=== PATIENT | male | born 1950 | race Caucasian/White ===

== ENCOUNTER 2019-09-30 08:51 | Day surgery (SDC) | payer MEDICARE, MEDICAID ==
[2019-09-30] VITALS (9 sets, daily range): BP systolic 110–165; BP diastolic 58–107
[~2019-09-30] VITALS: Ht 170.2 cm; Wt 105.1 kg
[~2019-09-30 08:51] MED LIST: ALBU18HF2 INH; ASPI-1265 PO; BECL7.3A INH; BUPR-344; CANA300T PO; CHOL50004 PO; CLON-371 PO; GLIM4TAB7 PO; HYDR-4353 PO; HYDR12.55 PO; LANTUS SUBCUT; LINA5TAB4 PO; LISI-600 PO; MAGN400C PO; MEMA28CA PO; METF-436 PO; PANT-47 PO; RIVA1PAT9 TOP; ROSU40TA PO; VENL150T3 PO
[2019-09-30] MEDS ORDERED: diphenhydrAMINE 25mg capsule PO PRN (09:20)
[2019-09-30] MEDS ORDERED: normal saline 1,000 ML IV SCH (09:20)
[2019-09-30 09:48] LABS: BASOPHILS % (AUTO) 0.3 % (0-1); EOSINOPHILS # (AUTO) 0.1 X10'3 (0-0.9); EOSINOPHILS % (AUTO) 1.3 % (0-6); HEMATOCRIT 40.5 % (42.0-52.0); HEMOGLOBIN 13.6 g/dl (14.0-17.9); LYMPHOCYTES # (AUTO) 1.4 X10'3 (1.1-4.8); LYMPHOCYTES % (AUTO) 18.5 % (21-51); MEAN CORPUSCULAR HEMOGLOBIN 29.2 PG (27.0-31.0); MEAN CORPUSCULAR HGB CONC 33.5 g/dL (33.0-36.5); MEAN CORPUSCULAR VOLUME 87.2 FL (78-98); MEAN PLATELET VOLUME 8.3 FL (7.4-10.4); MONOCYTES # (AUTO) 0.6 X10'3 (0-0.9); MONOCYTES % (AUTO) 8.5 % (2-12); NEUTROPHILS # (AUTO) 5.3 X10'3 (1.8-7.7); NEUTROPHILS % (AUTO) 71.4 % (42-75); PLATELET COUNT 194 X10'3 (140-440); RED BLOOD COUNT 4.65 X10'6 (4.70-6.10); RED CELL DISTRIBUTION WIDTH 14.6 % (11.5-14.5); WHITE BLOOD COUNT 7.5 X10'3 (4.5-11.0)
[2019-09-30 09:56] LABS: ALBUMIN 3.9 G/DL (3.4-5.0); ANION GAP 10 (8-16); BLOOD UREA NITROGEN 23 MG/DL (7-18); BUN/CREATININE RATIO 16.9 (5.4-32.0); CALCIUM 9.1 MG/DL (8.5-10.1); CHLORIDE 105 MMOL/L (99-107); CREATININE 1.36 MG/DL (0.60-1.10); GLUCOSE 167 MG/DL (70-104); MAGNESIUM 1.7 MG/DL (1.5-2.4); SODIUM 142 MMOL/L (135-145); TOTAL CARBON DIOXIDE 26.8 MMOL/L (24-32); eGFR 52 ML/MIN
[2019-09-30] MEDS ORDERED: iohexol 350 MG/ML 50ML vial IV ONE (10:33)
[2019-09-30] MEDS ORDERED: heparin 1,000unit/ml 10ml vial 10 ML ONE (10:33)
[2019-09-30] MEDS ORDERED: iohexol 350 MG/1 ML 200ml bottle ONE (10:33)
[2019-09-30] MEDS ORDERED: LIDOcaine 1% (10mg/ml)w/preservative injection 20ml MDV ONE (10:33)
[2019-09-30] MEDS ORDERED: midazolam 2 mg/2 ml injection ONE ×2 (10:34→11:28)
[2019-09-30] MEDS ORDERED: fentaNYL/PF 50MCG/1 ML 2ML syringe ONE ×2 (10:35→11:28)
--- NOTE | 2019-09-30 11:00 | NUR ---
Patient to OR via [facility]
[2019-09-30] MEDS ORDERED: proCHLORperazine 10 MG/2 ml inj ONE (11:14)
[2019-09-30] MEDS ORDERED: diphenhydrAMINE 50 mg/ml inj ONE (11:28)
[2019-09-30] MEDS ORDERED: nitroGLYCERIN-Tridil 50MG/D5W 250 ML IV ONE (11:53)
[2019-09-30] MEDS ORDERED: verapamil 2.5 mg/ml inj IV ONE (11:54)
[2019-09-30] MEDS ORDERED: clopidogrel 300mg tablet ONE (13:05)
[2019-09-30] MEDS ORDERED: HYDROcodone/acetaminophen 5mg/325mg tablet PO PRN (13:55)
[2019-09-30] MEDS ORDERED: ondansetron/PF 4mg/2ml inj IV PRN (13:55)
[2019-09-30] MEDS ORDERED: normal saline 1000ml 1,000 ML IV SCH (13:55)
[2019-09-30] MEDS ORDERED: proCHLORperazine 10 MG/2 ml inj IV PRN (13:55)
[2019-09-30] MEDS ORDERED: OXAZEpam 15mg capsule PO PRN (13:55)
[2019-09-30] MEDS ORDERED: HYDROcodone/acetaminophen 10/325mg tab PO PRN (13:55)
== END 2019-09-30 18:38 | disposition home or self-care (01) ==
LOC: SSTAY O 08:51
PROVIDERS: ATTEND Internal Medicine Cardiovascular Disease
DX: I70.211 Atherosclerosis of native arteries of extremities with intermittent claudication, right leg (principal); I10 Essential (primary) hypertension; E78.5 Hyperlipidemia, unspecified; E11.9 Type 2 diabetes mellitus without complications; J44.9 Chronic obstructive pulmonary disease, unspecified; I25.10 Atherosclerotic heart disease of native coronary artery without angina pectoris; F17.210 Nicotine dependence, cigarettes, uncomplicated; Z95.5 Presence of coronary angioplasty implant and graft; Z98.890 Other specified postprocedural states; Z79.4 Long term (current) use of insulin; Z79.899 Other long term (current) drug therapy; Z88.5 Allergy status to narcotic agent; M79.662 Pain in left lower leg
CPT/HCPCS: 36415; 37225; 75710; 80048; 83735; 85025; 85610; 93005; 99152; 99153; C1725; C1760; C1769; C1885; C1894; J0780; J1200; J1644; J2001; J2250; J3010; J7030; Q0163; Q9967; 36247; 37224; A4620; A6258; C2623; J3490

== ENCOUNTER 2020-04-01 06:59 | Inpatient (IN) | payer MEDICARE, MEDICAID ==
[2020-03-26 16:34] LABS: COLOR,URINE YELLOW (Yellow); GLUCOSE, URINE >=1000 mg/dl (Neg); KETONES,URINE NEGATIVE (Neg); LEUKOCYTE ESTERASE ,URINE NEGATIVE (Neg); NITRITES, URINE NEGATIVE (Neg); OCCULT BLOOD,URINE NEGATIVE (Neg); PH,URINE 5.5 (4.8-8.0); PROTEIN,URINE NEGATIVE (Neg); UROBILINOGEN,URINE 0.2 E.U/dL (0.2-1.0)
[2020-03-26 16:41] LABS: HEMOGLOBIN A1C 9.3 % (4.5-6.2)
[2020-03-26 16:43] LABS: UA COLLECTION TYPE CLN CATCH MIDSTREAM
[2020-03-26 16:44] LABS: CLARITY,URINE SLIGHTLY CLOUDY (Clear)
[2020-03-26 16:45] LABS: BACTERIA,URINE FEW /HPF (Neg); RBC,URINE NONE SEEN /HPF (0-2); SQUAMOUS EPITHELIAL CELL,UR MANY /LPF (FEW); WBC,URINE 0-4 /HPF (0-4)
[2020-03-26 16:46] LABS: PRE OP PROTIME 10.3 SECONDS (9.0-12.0)
[2020-03-26 16:48] LABS: ALBUMIN 3.7 G/DL (3.4-5.0); ALBUMIN/GLOBULIN RATIO 0.9 (1.1-1.5); ALKALINE PHOSPHATASE 76 IU/L (46-116); BLOOD UREA NITROGEN 16 MG/DL (7-18); BUN/CREATININE RATIO 10.8 (5.4-32.0); CALCIUM 9.1 MG/DL (8.5-10.1); CHLORIDE 105 MMOL/L (99-107); CREATININE 1.48 MG/DL (0.60-1.10); PRE OP ALT 58 U/L (30-65); PRE OP ANION GAP 11 (8-16); PRE OP AST 37 U/L (10-37); PRE OP BILIRUB, TOTAL 0.3 MG/DL (0.0-1.0); PRE OP GLUCOSE 171 MG/DL (70-104); PRE OP POTASSIUM 3.9 MMOL/L (3.4-5.1); PRE OP SODIUM 142 MMOL/L (135-145); TOTAL CARBON DIOXIDE 26.1 MMOL/L (24-32); TOTAL PROTEIN 7.6 G/DL (6.4-8.2); eGFR 47 ML/MIN
[2020-03-26 17:01] LABS: BASOPHILS % (AUTO) 0.4 % (0-1); EOSINOPHILS # (AUTO) 0.1 X10'3 (0-0.9); EOSINOPHILS % (AUTO) 1.4 % (0-6); LYMPHOCYTES # (AUTO) 1.6 X10'3 (1.1-4.8); LYMPHOCYTES % (AUTO) 21.9 % (21-51); MEAN CORPUSCULAR HEMOGLOBIN 28.9 PG (27.0-31.0); MEAN CORPUSCULAR HGB CONC 32.8 g/dL (33.0-36.5); MEAN CORPUSCULAR VOLUME 88.2 FL (78-98); MEAN PLATELET VOLUME 8.2 FL (7.4-10.4); MONOCYTES # (AUTO) 0.6 X10'3 (0-0.9); NEUTROPHILS # (AUTO) 4.8 X10'3 (1.8-7.7); NEUTROPHILS % (AUTO) 68.3 % (42-75); PRE OP HEMOGLOBIN 12.8 g/dL (14.0-17.9); PRE OP PLATELET COUNT 209 X10'3 (140-440); RED BLOOD COUNT 4.42 X10'6 (4.70-6.10); RED CELL DISTRIBUTION WIDTH 14.5 % (11.5-14.5)
[2020-04-01] VITALS (19 sets, daily range): BP systolic 103–166; BP diastolic 62–79
[~2020-04-01] VITALS: Ht 175.3 cm; Wt 106.6 kg
[~2020-04-01 06:59] MED LIST changes: -ASPI-1265 PO; -BECL7.3A INH; +BISO5TAB29 PO; -BUPR-344; -CANA300T PO; -CHOL50004 PO; -CLON-371 PO; +CLOP75TA33 PO; +DOCUMENT DATE & TIME OF BETA-BLOCKER PO ONE; +DONE10TA44 PO; +DULA1.5P INJ; +EMPA25TA PO; +INSU100I31 SQ; +ISOS30TA6 PO; -LANTUS SUBCUT; -LINA5TAB4 PO; +MESSAGE TO NURSING IV ONE; +QUET25TA PO; -RIVA1PAT9 TOP; -ROSU40TA PO; +ROSU40TA22 PO; +TRAZ-251 PO; +albuterol 2.5 MG/3 ML nebule NEB ONE; +famotidine 20mg tablet PO ONE; +ringers solution, lacted 1,000 ML IV SCH
[2020-04-01] MEDS ORDERED: LIDOcaine 1% (10mg/ml) 2ml vial ONE ×2 (08:11→13:21)
[2020-04-01] MEDS ORDERED: cefazolin/dext.iso 2gm/50ml 50 ML IV ONE (08:25)
[2020-04-01] MEDS ORDERED: ringers solution, lacted 1,000 ML IV SCH (11:13)
[2020-04-01] MEDS ORDERED: ondansetron/PF 4mg/2ml inj IV PRN ×2 (11:15→16:35)
[2020-04-01] MEDS ORDERED: proCHLORperazine 10 MG/2 ml inj IV PRN (11:15)
[2020-04-01] MEDS ORDERED: morphine 2 MG/ML inj. syringe IV PRN (11:15)
[2020-04-01] MEDS ORDERED: meperidine/PF 25mg/ml syringe IV PRN ×3 (11:15)
[2020-04-01] MEDS ORDERED: morphine 4 MG/ML inj SYRINge IV PRN (11:15)
[2020-04-01] MEDS ORDERED: ceFAZolin 1000mg inj ONE (13:21)
[2020-04-01] MEDS ORDERED: MIDAZolam 5mg/5ml vial ONE (13:35)
[2020-04-01] MEDS ORDERED: fentaNYL/PF 50MCG/1 ML 2ML syringe ONE (13:35)
[2020-04-01] MEDS ORDERED: NORepinephrine 8 MG in NS 250 ML BAG (32 mcg/ml) IV ONE (13:37)
[2020-04-01] MEDS ORDERED: albumin (Human) 5% 250ml 250 ML IV ONE (14:08)
[2020-04-01] MEDS ORDERED: heparin 10,000 units/1 ML INJ ONE (14:13)
[2020-04-01] MEDS ORDERED: heparin 1,000unit/ml 10ml vial 10 ML ONE (15:35)
--- NOTE | 2020-04-01 15:47 | NUR ---
Received from OR via ICU BED , accompanied by Anesthesiologist RACHEL and report given by Anesthesiolgist. PATIENT WITH 20G PIV IN RIGHT UE WELL ART LINE. RIGHT INGUINAL WOUND VAC SITE PRESENT. DENIES PAIN 2' SPINAL ANESTHESIA. PATIENT SENSATION LEVEL AT L1 CURRENTLY. + DP AND PT TO RIGHT FOOT WITH DOPPLER. STRONG PULSES. SITES MARKED. VSS Addendum: 04/01/20 at 1603 by Paul Irvin RN, RN Amended: Links added.
--- NOTE | 2020-04-01 16:33 | NUR ---
Patient in room PAS IN 900. I have received report from Paul LYONS and had the opportunity to ask questions and awaiting patients arrival.
--- NOTE | 2020-04-01 16:57 | NUR ---
Report called to receiving nurse. Transferred via ICU BED WITH 2 BAGS OF Belongings . Special Issues communicated to receiving nurse BLAYNE LYONS. PASSIVE TRANSFERED TO PCU BED WITH 3 PERSON ASSIST ( PASSIVE TRANSFER ). VAC INTACT, SUCTION AT 75 MM HG MAINTAINING SUCTION WITH NO AUDIBLE LEAKS. PAIN AT 3-10 PAIN. + DP AND PT. RN'S PRESENT TO ASSIST AT BEDSIDE. VSS. Addendum: 04/01/20 at 1720 by Paul Irvin RN, RN Amended: Links added.
--- NOTE | 2020-04-01 17:00 | NUR ---
Pt arrived from PACU, 3 person assist from ICU bed to PCU bed. Pt alert and oriented x4. Fall risks in place: BLL, SRx2, CL within reach, non skid socks on. SCD's placed, Wound VAC set at 75 low continuous suction. Forrest Cath in place, below pt to gravity. Post op vitals started. 2 RN skin check complete. MRSA collected, sent to lab.
[2020-04-01] MEDS ORDERED: albuterol 2.5 MG/3 ML nebule NEB PRN ×2 (17:20→17:27)
[2020-04-01] MEDS: normal saline 1000ml 1,000 ML IV SCH (17:40)
[2020-04-01] MEDS: EMPAGLIFLOZIN PO SCH (18:10)
[2020-04-01] MEDS ORDERED: DULAGLUTIDE SQ SCH (18:15)
--- NOTE | 2020-04-01 18:30 | NUR ---
Problems reprioritized. Patient report given, questions answered & plan of care reviewed with ELOY Gutierrez. Informed nurse post op vitals need finished, and pt needs a late dinner tray.
--- NOTE | 2020-04-01 18:35 | NUR ---
Patient in room PCU 3028. I have received report from Majo and had the opportunity to ask questions and assume patient care.
[2020-04-01] MEDS: HYDROcodone/acetaminophen 10/325mg tab PO PRN (18:58)
[2020-04-01] MEDS: traZODone 50mg tablet PO SCH (20:56)
[2020-04-01] MEDS: metFORMIN 500mg tablet PO SCH (20:57)
[2020-04-01] MEDS: magnesium oxide 400mg tablet PO SCH (20:57)
[2020-04-01] MEDS: donepezil 5mg tablet PO SCH (20:58)
[2020-04-01] MEDS: lisinopril 20mg tablet PO SCH (20:58)
[2020-04-01] MEDS: QUEtiapine 25mg tablet PO SCH (20:58)
[2020-04-02] MEDS ORDERED: ziprasidone IM 20mg inj **IM only IM ONE (00:55)
[2020-04-02 02:00] VITALS: BP 158/87
[2020-04-02] MEDS: normal saline 1000ml 1,000 ML IV SCH ×3 (03:43→22:55)
--- NOTE | 2020-04-02 04:16 | NUR ---
Patient has been confused, AOx1 to name. He stated that he has dementia and needed repeated reorientation during the night. At 0100 the patient awoke confused and aggressive. He threatened staff and attempted to pull catheter, iv's and drainage tubing from his wound vac placed at the femoral site. After attempting to reorientate the patient without success I called Dr. Alvarado for further orders. The patient was placed in restraints and 10 mg geodon was administered.
--- NOTE | 2020-04-02 06:20 | NUR ---
Patient in room PCU 3028. I have received report from Jewell LYONS and had the opportunity to ask questions and assume patient care.
--- NOTE | 2020-04-02 06:30 | NUR ---
Problems reprioritized. Patient report given, questions answered & plan of care reviewed with Carolina LYONS.
[2020-04-02 07:00] VITALS: BP 143/61
[2020-04-02] MEDS ORDERED: insulin glargine (Lantus) pen - multi-dose SQ SCH (08:00)
[2020-04-02] MEDS: EMPAGLIFLOZIN PO SCH (08:00)
[2020-04-02] MEDS: venlafaxine XR 75mg capsule (Q24H) PO SCH (09:01)
[2020-04-02] MEDS: clopidogrel 75mg tablet PO SCH (09:02)
[2020-04-02] MEDS: isosorbide mononitrate 30mg tab.SR.24H PO SCH (09:02)
[2020-04-02] MEDS: pantoprazole 40mg Tablet.DR PO SCH (09:02)
[2020-04-02] MEDS: lisinopril 20mg tablet PO SCH ×2 (09:02→20:18)
[2020-04-02] MEDS: QUEtiapine 25mg tablet PO SCH ×2 (09:02→20:17)
[2020-04-02] MEDS: atenolol 25mg tablet PO SCH (09:03)
[2020-04-02] MEDS: HYDROchlorothiazide 25mg tablet PO SCH (09:03)
[2020-04-02] MEDS: atorvastatin 20mg tablet PO SCH (09:04)
--- NOTE | 2020-04-02 09:13 | NUR ---
Patient's was notified about patient's on wrist restraints, the reason for restraints, and the criteria for removing the restraints. She verbalized understanding of why we needed to put patient on restraints
[2020-04-02 11:00] VITALS: BP 95/44
[2020-04-02] MEDS ORDERED: LORazepam 1 MG tablet PO PRN (12:50)
[2020-04-02] MEDS: HYDROcodone/acetaminophen 10/325mg tab PO PRN ×2 (12:51→20:24)
--- NOTE | 2020-04-02 12:57 | NUR ---
Dr. Alvarado seen the patient. Received order to transfer this patient to Surgical flr and Ativan PO PRN for agitation/anxiety
--- NOTE | 2020-04-02 13:19 | NUR ---
Received order from Dr. Alvarado to start patient on hyperglycemia/hypoglycemia protocol. Pharmacist Jordana notified about this
[2020-04-02] MEDS ORDERED: dextrose 50%-water 50ml dispensing syringe IV PRN ×2 (13:20)
[2020-04-02] MEDS ORDERED: MESSAGE TO PHARMACY PO ONE (13:20)
[2020-04-02] MEDS ORDERED: glucagon, human recombinant 1mg kit SUBCUT PRN (13:20)
[2020-04-02] MEDS ORDERED: dextrose ORAL solution 15 GM/59 ML bottle PO PRN ×2 (13:20)
[2020-04-02] MEDS: insulin Lispro (HumaLOG) vial - multi-dose SQ SCH (13:49)
--- NOTE | 2020-04-02 14:54 | NUR ---
Patient has been off restraints for 2 hours without any problem. Patient is confused but able to follow commands, cooperative, not attempting to pull out IV, bonds catheter or wound vac. Patient need reorientation and redirection as necessary.
--- NOTE | 2020-04-02 15:01 | NUR ---
Deanne notified that this patient will be transferring to Surgical Unit today
--- NOTE | 2020-04-02 15:34 | NUR ---
DM consult, A1c is 9.3; needs written DM education handout with verbal review. Per teaching records patient is currently confused. Will monitor appropriateness for education. Addendum: 04/02/20 at [address] Amended: Links added.
--- NOTE | 2020-04-02 15:36 | NUR ---
brought patient's home medications - Namenda and Jardiance today. Medications stored in the pharmacy
[2020-04-02] MEDS: memantine hcl 7mg SR capsule (24-hr) PO SCH (15:40)
[2020-04-02 15:49] VITALS: BP 100/55
--- NOTE | 2020-04-02 16:50 | NUR ---
Report given to Naomie LYONS in Surgical Unit
--- NOTE | 2020-04-02 17:30 | NUR ---
RECD PT FROM U. PT CONFUSED, BASELINE, VSS Addendum: 04/02/20 at 1832 by Taisha Tillman RN Amended: Links added.
--- NOTE | 2020-04-02 17:31 | NUR ---
Patient transported to Surgical Unit Room 358A with his belongings
[2020-04-02 17:44] VITALS: BP 125/67
[2020-04-02 18:00] VITALS: BP 110/60
--- NOTE | 2020-04-02 18:17 | NUR ---
Problems reprioritized. Patient report given, questions answered & plan of care reviewed with HECTOR LYONS.
[2020-04-02] MEDS: donepezil 5mg tablet PO SCH (20:17)
[2020-04-02] MEDS: traZODone 50mg tablet PO SCH (20:18)
[2020-04-02] MEDS: magnesium oxide 400mg tablet PO SCH (20:18)
[2020-04-02] MEDS: metFORMIN 500mg tablet PO SCH (20:18)
[2020-04-02] MEDS: insulin glargine (Lantus) pen - multi-dose SQ SCH (20:47)
[2020-04-03] VITALS: BP 90/54
[2020-04-03] MEDS: HYDROcodone/acetaminophen 10/325mg tab PO PRN ×2 (05:06→08:24)
--- NOTE | 2020-04-03 06:31 | NUR ---
Reported off to Christopher RN. Patient is awake and alert on room air. Call light and items of frequent use within reach.
--- NOTE | 2020-04-03 07:06 | NUR ---
Patient in room ROBYN 358. I have received report from HECTOR LYONS and had the opportunity to ask questions and assume patient care.
[2020-04-03] MEDS: EMPAGLIFLOZIN PO SCH (08:00)
[2020-04-03] MEDS: pantoprazole 40mg Tablet.DR PO SCH (08:26)
[2020-04-03] MEDS: atenolol 25mg tablet PO SCH (08:26)
[2020-04-03] MEDS: lisinopril 20mg tablet PO SCH ×2 (08:26→20:11)
[2020-04-03] MEDS: isosorbide mononitrate 30mg tab.SR.24H PO SCH (08:26)
[2020-04-03] MEDS: QUEtiapine 25mg tablet PO SCH ×2 (08:26→20:10)
[2020-04-03] MEDS: clopidogrel 75mg tablet PO SCH (08:26)
[2020-04-03] MEDS: atorvastatin 20mg tablet PO SCH (08:26)
[2020-04-03] MEDS: HYDROchlorothiazide 25mg tablet PO SCH (08:27)
[2020-04-03] MEDS: memantine hcl 7mg SR capsule (24-hr) PO SCH (08:27)
[2020-04-03] MEDS: venlafaxine XR 75mg capsule (Q24H) PO SCH (08:27)
[2020-04-03] MEDS: normal saline 1000ml 1,000 ML IV SCH ×2 (08:32→18:37)
[2020-04-03] MEDS: insulin Lispro (HumaLOG) vial - multi-dose SQ SCH (08:37)
[2020-04-03 10:19] VITALS: BP 114/66
[2020-04-03 12:00] VITALS: BP 83/52
--- NOTE | 2020-04-03 15:47 | NUR ---
Patient blood sugar was not treated today because it was difficult to calculate the grams of carbs eaten at this time. Patient will be treated after dinner.
--- NOTE | 2020-04-03 18:16 | NUR ---
Problems reprioritized. Patient report given, questions answered & plan of care reviewed with Donna LYONS.
--- NOTE | 2020-04-03 18:20 | NUR ---
Patient in room ROBYN 358. I have received report from Christopher LYONS and had the opportunity to ask questions and assume patient care.
--- NOTE | 2020-04-03 19:29 | NUR ---
paged Dr. Linares concerning pt's blood sugars and medications. Pt is on hyper/hypoglycemic protocol and being covered for blood sugars and pt is also on home medication metformin 2000mg. Dr. Linares ordered to d/c metformin and that he doesn't need coverage tonight. will continue to monitor.
[2020-04-03] MEDS: insulin glargine (Lantus) pen - multi-dose SQ SCH (19:38)
[2020-04-03 20:00] VITALS: BP 130/62
[2020-04-03] MEDS: donepezil 5mg tablet PO SCH (20:10)
[2020-04-03] MEDS: traZODone 50mg tablet PO SCH (20:11)
[2020-04-03] MEDS: magnesium oxide 400mg tablet PO SCH (20:11)
[2020-04-04] VITALS: BP 132/70
[2020-04-04] MEDS: normal saline 1000ml 1,000 ML IV SCH ×2 (04:27→13:34)
--- NOTE | 2020-04-04 06:23 | NUR ---
Problems reprioritized. Patient report given, questions answered & plan of care reviewed with Christopher RN.
--- NOTE | 2020-04-04 06:30 | NUR ---
Patient in room ROBYN 358. I have received report from Donna LYONS and had the opportunity to ask questions and assume patient care.
[2020-04-04 07:00] VITALS: BP 118/59
[2020-04-04] MEDS: HYDROchlorothiazide 25mg tablet PO SCH (07:21)
[2020-04-04] MEDS: isosorbide mononitrate 30mg tab.SR.24H PO SCH (07:21)
[2020-04-04] MEDS: venlafaxine XR 75mg capsule (Q24H) PO SCH (07:21)
[2020-04-04] MEDS: atorvastatin 20mg tablet PO SCH (07:23)
[2020-04-04] MEDS: atenolol 25mg tablet PO SCH (07:23)
[2020-04-04] MEDS: clopidogrel 75mg tablet PO SCH (07:23)
[2020-04-04] MEDS: pantoprazole 40mg Tablet.DR PO SCH (07:23)
[2020-04-04] MEDS: HYDROcodone/acetaminophen 10/325mg tab PO PRN ×2 (07:24→15:33)
[2020-04-04] MEDS: QUEtiapine 25mg tablet PO SCH ×2 (07:24→22:01)
[2020-04-04] MEDS: lisinopril 20mg tablet PO SCH ×2 (07:25→22:03)
[2020-04-04] MEDS: memantine hcl 7mg SR capsule (24-hr) PO SCH (07:26)
[2020-04-04] MEDS: EMPAGLIFLOZIN PO SCH (08:00)
[2020-04-04 11:49] VITALS: BP 98/56
--- NOTE | 2020-04-04 14:36 | NUR ---
Patient just finished eating lunch at this time. Patient will not be treated with insulin at this time because it is too close to next insulin administration. Patient was hypoglycemic this morning and dropped a level in our protocol will resume at level one at dinner.
[2020-04-04 18:00] VITALS: BP 119/63
--- NOTE | 2020-04-04 18:44 | NUR ---
Problems reprioritized. Patient report given, questions answered & plan of care reviewed with Juan LYONS.
[2020-04-04] MEDS: insulin Lispro (HumaLOG) vial - multi-dose SQ SCH (19:07)
[2020-04-04] MEDS: insulin glargine (Lantus) pen - multi-dose SQ SCH (21:00)
[2020-04-04] MEDS: traZODone 50mg tablet PO SCH (22:00)
[2020-04-04] MEDS: magnesium oxide 400mg tablet PO SCH (22:00)
[2020-04-04] MEDS: donepezil 5mg tablet PO SCH (22:01)
[2020-04-05] VITALS: BP 129/70
[2020-04-05] MEDS: normal saline 1000ml 1,000 ML IV SCH ×2 (00:35→10:35)
--- NOTE | 2020-04-05 06:35 | NUR ---
Patient in room ROBYN 359. I have received report from Juan LYONS and had the opportunity to ask questions and assume patient care.
[2020-04-05 07:00] VITALS: BP 112/55
[2020-04-05] MEDS: EMPAGLIFLOZIN PO SCH (08:00)
[2020-04-05] MEDS: QUEtiapine 25mg tablet PO SCH (09:07)
[2020-04-05] MEDS: clopidogrel 75mg tablet PO SCH (09:07)
[2020-04-05] MEDS: atorvastatin 20mg tablet PO SCH (09:08)
[2020-04-05] MEDS: venlafaxine XR 75mg capsule (Q24H) PO SCH (09:09)
[2020-04-05] MEDS: pantoprazole 40mg Tablet.DR PO SCH (09:09)
[2020-04-05] MEDS: lisinopril 20mg tablet PO SCH (09:09)
[2020-04-05] MEDS: atenolol 25mg tablet PO SCH (09:10)
[2020-04-05] MEDS: isosorbide mononitrate 30mg tab.SR.24H PO SCH (09:10)
--- NOTE | 2020-04-05 09:28 | NUR ---
phoned pharmacy: Meds not available...Need l/4 of 25 mg Hydrochlorathiazide tab and Namenda
[2020-04-05] MEDS: memantine hcl 7mg SR capsule (24-hr) PO SCH (10:45)
[2020-04-05] MEDS: HYDROchlorothiazide 25mg tablet PO SCH (10:46)
[2020-04-05 11:00] VITALS: BP 128/69
[2020-04-05 11:11] VITALS: BP 112/55
--- NOTE | 2020-04-05 13:00 | NUR ---
1220 Report phoned to Lesley at [facility]. Pt stable and appropriate for transfer. PIV d/c'd cannula intact. [facility] here to transport patient to [facility]. Pt felt need to have a BM, no result. Pt down to [facility] with all personal belongings as well as home meds, accompanied by transport staff via [facility].
== END 2020-04-05 13:11 | DRG 254 ==
LOC: PAS IN 06:59 → UNDOADMIN 06:59 → EDSTATUS 10:30 → PCU 3S 16:33 → PAS IN 16:33 → PCU 3S 17:01 → SUR 3N 04-02 17:24
PROVIDERS: ADMIT Surgery; ATTEND Surgery
PROC: 04UK0KZ Supplement Right Femoral Artery with Nonautologous Tissue Substitute, Open Approach (ICD-10-PCS; 2020-04-01)
PROC: 04CK0ZZ Extirpation of Matter from Right Femoral Artery, Open Approach (ICD-10-PCS; principal; 2020-04-01 13:37)
DX: E11.51 Type 2 diabetes mellitus with diabetic peripheral angiopathy without gangrene (principal); E66.01 Morbid (severe) obesity due to excess calories; K43.9 Ventral hernia without obstruction or gangrene; F17.210 Nicotine dependence, cigarettes, uncomplicated; I10 Essential (primary) hypertension; Z95.1 Presence of aortocoronary bypass graft; Z82.49 Family history of ischemic heart disease and other diseases of the circulatory system; Z82.5 Family history of asthma and other chronic lower respiratory diseases; Z88.6 Allergy status to analgesic agent; Z68.34 Body mass index [BMI] 34.0-34.9, adult; Z03.818 Encounter for observation for suspected exposure to other biological agents ruled out; J44.9 Chronic obstructive pulmonary disease, unspecified; E78.5 Hyperlipidemia, unspecified; F03.90 Unspecified dementia, unspecified severity, without behavioral disturbance, psychotic disturbance, mood disturbance, and anxiety; M19.90 Unspecified osteoarthritis, unspecified site; K21.9 Gastro-esophageal reflux disease without esophagitis; E11.40 Type 2 diabetes mellitus with diabetic neuropathy, unspecified; I25.10 Atherosclerotic heart disease of native coronary artery without angina pectoris
CPT/HCPCS: 36415; 71046; 80053; 81001; 82948; 83036; 85025; 85610; 85730; 86885; 86900; 86901; 86920; 87081; 93005; 94640; 94760; 97116; 97161; 97530; A4618; A6258; A7000; C1758; C1768; G0378; J0690; J1644; J1815; J2001; J2250; J3010; J3486; J7030; J7040; J7120; P9045

== ENCOUNTER 2020-04-30 10:35 | Day surgery (SDC) | payer MEDICARE, MEDICAID ==
[~2020-04-30 10:35] MED LIST changes: -DOCUMENT DATE & TIME OF BETA-BLOCKER PO ONE; -MESSAGE TO NURSING IV ONE; -albuterol 2.5 MG/3 ML nebule NEB ONE; -famotidine 20mg tablet PO ONE; -ringers solution, lacted 1,000 ML IV SCH
[2020-04-30] MEDS ORDERED: LIDOcaine 2% 5ml jelly ONE (11:03)
== END 2020-04-30 12:14 | disposition home or self-care (01) ==
LOC: WOUND CARE 10:35
PROVIDERS: ATTEND Nurse Practitioner
DX: T81.89XD Other complications of procedures, not elsewhere classified, subsequent encounter (principal); E11.622 Type 2 diabetes mellitus with other skin ulcer; L98.492 Non-pressure chronic ulcer of skin of other sites with fat layer exposed; I10 Essential (primary) hypertension; E11.36 Type 2 diabetes mellitus with diabetic cataract; K21.9 Gastro-esophageal reflux disease without esophagitis; J44.9 Chronic obstructive pulmonary disease, unspecified; E78.5 Hyperlipidemia, unspecified; F32.9 Major depressive disorder, single episode, unspecified; F41.9 Anxiety disorder, unspecified; F03.90 Unspecified dementia, unspecified severity, without behavioral disturbance, psychotic disturbance, mood disturbance, and anxiety; Z86.718 Personal history of other venous thrombosis and embolism; Z95.1 Presence of aortocoronary bypass graft; Y83.8 Other surgical procedures as the cause of abnormal reaction of the patient, or of later complication, without mention of misadventure at the time of the procedure
CPT/HCPCS: 36416; 82948; 97597; 97598

== ENCOUNTER 2020-05-15 12:58 | Day surgery (SDC) | payer MEDICARE, MEDICAID ==
[2020-05-15] MEDS ORDERED: LIDOcaine 2% 5ml jelly ONE (13:29)
== END 2020-05-15 14:40 | disposition home or self-care (01) ==
LOC: WOUND CARE 12:58
PROVIDERS: ATTEND Nurse Practitioner
DX: T81.89XD Other complications of procedures, not elsewhere classified, subsequent encounter (principal); E11.622 Type 2 diabetes mellitus with other skin ulcer; L98.492 Non-pressure chronic ulcer of skin of other sites with fat layer exposed; I10 Essential (primary) hypertension; E11.36 Type 2 diabetes mellitus with diabetic cataract; K21.9 Gastro-esophageal reflux disease without esophagitis; J44.9 Chronic obstructive pulmonary disease, unspecified; E78.5 Hyperlipidemia, unspecified; F32.9 Major depressive disorder, single episode, unspecified; F41.9 Anxiety disorder, unspecified; F03.90 Unspecified dementia, unspecified severity, without behavioral disturbance, psychotic disturbance, mood disturbance, and anxiety; Z86.718 Personal history of other venous thrombosis and embolism; Z95.1 Presence of aortocoronary bypass graft; Y83.8 Other surgical procedures as the cause of abnormal reaction of the patient, or of later complication, without mention of misadventure at the time of the procedure
CPT/HCPCS: 36416; 82948; 97597; 97598

== ENCOUNTER 2020-05-22 13:37 | Day surgery (SDC) | payer MEDICARE, MEDICAID ==
[2020-05-22] MEDS ORDERED: LIDOcaine 2% 5ml jelly ONE (14:15)
== END 2020-05-22 15:43 | disposition home or self-care (01) ==
LOC: WOUND CARE 13:37
PROVIDERS: ATTEND Nurse Practitioner
DX: T81.89XD Other complications of procedures, not elsewhere classified, subsequent encounter (principal); E11.622 Type 2 diabetes mellitus with other skin ulcer; L98.492 Non-pressure chronic ulcer of skin of other sites with fat layer exposed; I10 Essential (primary) hypertension; E11.36 Type 2 diabetes mellitus with diabetic cataract; K21.9 Gastro-esophageal reflux disease without esophagitis; J44.9 Chronic obstructive pulmonary disease, unspecified; E78.5 Hyperlipidemia, unspecified; F32.9 Major depressive disorder, single episode, unspecified; F41.9 Anxiety disorder, unspecified; F03.90 Unspecified dementia, unspecified severity, without behavioral disturbance, psychotic disturbance, mood disturbance, and anxiety; Z86.718 Personal history of other venous thrombosis and embolism; Z95.1 Presence of aortocoronary bypass graft; Y83.8 Other surgical procedures as the cause of abnormal reaction of the patient, or of later complication, without mention of misadventure at the time of the procedure
CPT/HCPCS: 82948; 97597

== ENCOUNTER 2020-05-28 11:22 | Day surgery (SDC) | payer MEDICARE, MEDICAID ==
[2020-05-28] MEDS ORDERED: LIDOcaine 2% 5ml jelly ONE (12:47)
== END 2020-05-28 13:55 | disposition home or self-care (01) ==
LOC: WOUND CARE 11:22
PROVIDERS: ATTEND Nurse Practitioner
DX: T81.89XD Other complications of procedures, not elsewhere classified, subsequent encounter (principal); E11.622 Type 2 diabetes mellitus with other skin ulcer; L98.492 Non-pressure chronic ulcer of skin of other sites with fat layer exposed; I10 Essential (primary) hypertension; E11.36 Type 2 diabetes mellitus with diabetic cataract; K21.9 Gastro-esophageal reflux disease without esophagitis; J44.9 Chronic obstructive pulmonary disease, unspecified; E78.5 Hyperlipidemia, unspecified; F32.9 Major depressive disorder, single episode, unspecified; F41.9 Anxiety disorder, unspecified; F03.90 Unspecified dementia, unspecified severity, without behavioral disturbance, psychotic disturbance, mood disturbance, and anxiety; Z86.718 Personal history of other venous thrombosis and embolism; Z95.1 Presence of aortocoronary bypass graft; Y83.8 Other surgical procedures as the cause of abnormal reaction of the patient, or of later complication, without mention of misadventure at the time of the procedure
CPT/HCPCS: 97597

== ENCOUNTER 2020-06-04 11:10 | Day surgery (SDC) | payer MEDICARE, MEDICAID ==
[2020-06-04] MEDS ORDERED: LIDOcaine 2% 5ml jelly ONE (11:38)
== END 2020-06-04 11:57 | disposition home or self-care (01) ==
LOC: WOUND CARE 11:10
PROVIDERS: ATTEND Nurse Practitioner
DX: T81.89XD Other complications of procedures, not elsewhere classified, subsequent encounter (principal); E11.622 Type 2 diabetes mellitus with other skin ulcer; L98.492 Non-pressure chronic ulcer of skin of other sites with fat layer exposed; I10 Essential (primary) hypertension; E11.36 Type 2 diabetes mellitus with diabetic cataract; K21.9 Gastro-esophageal reflux disease without esophagitis; J44.9 Chronic obstructive pulmonary disease, unspecified; E78.5 Hyperlipidemia, unspecified; F32.9 Major depressive disorder, single episode, unspecified; F41.9 Anxiety disorder, unspecified; F03.90 Unspecified dementia, unspecified severity, without behavioral disturbance, psychotic disturbance, mood disturbance, and anxiety; Z86.718 Personal history of other venous thrombosis and embolism; Z95.1 Presence of aortocoronary bypass graft; Y83.8 Other surgical procedures as the cause of abnormal reaction of the patient, or of later complication, without mention of misadventure at the time of the procedure
CPT/HCPCS: 97597

== ENCOUNTER 2020-06-11 11:20 | Day surgery (SDC) | payer MEDICARE, MEDICAID ==
[2020-06-11] MEDS ORDERED: LIDOcaine 2% 5ml jelly ONE (11:37)
== END 2020-06-11 12:04 | disposition home or self-care (01) ==
LOC: WOUND CARE 11:20
PROVIDERS: ATTEND Nurse Practitioner
DX: T81.89XD Other complications of procedures, not elsewhere classified, subsequent encounter (principal); E11.622 Type 2 diabetes mellitus with other skin ulcer; L98.492 Non-pressure chronic ulcer of skin of other sites with fat layer exposed; I10 Essential (primary) hypertension; E11.36 Type 2 diabetes mellitus with diabetic cataract; K21.9 Gastro-esophageal reflux disease without esophagitis; J44.9 Chronic obstructive pulmonary disease, unspecified; E78.5 Hyperlipidemia, unspecified; F32.9 Major depressive disorder, single episode, unspecified; F41.9 Anxiety disorder, unspecified; F03.90 Unspecified dementia, unspecified severity, without behavioral disturbance, psychotic disturbance, mood disturbance, and anxiety; Z86.718 Personal history of other venous thrombosis and embolism; Z95.1 Presence of aortocoronary bypass graft; Y83.8 Other surgical procedures as the cause of abnormal reaction of the patient, or of later complication, without mention of misadventure at the time of the procedure
CPT/HCPCS: 36416; 82948; 97597

== ENCOUNTER 2020-06-18 11:20 | Day surgery (SDC) | payer MEDICARE, MEDICAID ==
[2020-06-18] MEDS ORDERED: LIDOcaine 2% 5ml jelly ONE (11:32)
== END 2020-06-18 12:04 | disposition home or self-care (01) ==
LOC: WOUND CARE 11:20
PROVIDERS: ATTEND Nurse Practitioner
DX: T81.89XD Other complications of procedures, not elsewhere classified, subsequent encounter (principal); E11.622 Type 2 diabetes mellitus with other skin ulcer; L98.492 Non-pressure chronic ulcer of skin of other sites with fat layer exposed; I10 Essential (primary) hypertension; E11.36 Type 2 diabetes mellitus with diabetic cataract; M19.90 Unspecified osteoarthritis, unspecified site; K21.9 Gastro-esophageal reflux disease without esophagitis; J44.9 Chronic obstructive pulmonary disease, unspecified; E78.5 Hyperlipidemia, unspecified; F32.9 Major depressive disorder, single episode, unspecified; F41.9 Anxiety disorder, unspecified; F17.200 Nicotine dependence, unspecified, uncomplicated; F03.90 Unspecified dementia, unspecified severity, without behavioral disturbance, psychotic disturbance, mood disturbance, and anxiety; Z86.718 Personal history of other venous thrombosis and embolism; Z95.1 Presence of aortocoronary bypass graft; Y83.8 Other surgical procedures as the cause of abnormal reaction of the patient, or of later complication, without mention of misadventure at the time of the procedure
CPT/HCPCS: 36416; 82948; 97597

== ENCOUNTER 2020-06-25 12:00 | Outpatient (CLI) | payer MEDICARE, MEDICAID ==
[2020-06-25] MEDS ORDERED: LIDOcaine 2% 5ml jelly ONE (12:45)
== END 2020-06-25 13:15 | disposition home or self-care (01) ==
LOC: WOUND CARE 12:00
PROVIDERS: ATTEND Nurse Practitioner
DX: T81.89XD Other complications of procedures, not elsewhere classified, subsequent encounter (principal); E11.622 Type 2 diabetes mellitus with other skin ulcer; L98.492 Non-pressure chronic ulcer of skin of other sites with fat layer exposed; I10 Essential (primary) hypertension; E11.36 Type 2 diabetes mellitus with diabetic cataract; M19.90 Unspecified osteoarthritis, unspecified site; K21.9 Gastro-esophageal reflux disease without esophagitis; J44.9 Chronic obstructive pulmonary disease, unspecified; E78.5 Hyperlipidemia, unspecified; F32.9 Major depressive disorder, single episode, unspecified; F41.9 Anxiety disorder, unspecified; F17.200 Nicotine dependence, unspecified, uncomplicated; F03.90 Unspecified dementia, unspecified severity, without behavioral disturbance, psychotic disturbance, mood disturbance, and anxiety; Z86.718 Personal history of other venous thrombosis and embolism; Z95.1 Presence of aortocoronary bypass graft; Y83.8 Other surgical procedures as the cause of abnormal reaction of the patient, or of later complication, without mention of misadventure at the time of the procedure
CPT/HCPCS: 36416; 82948; 97597